=== PATIENT | female | born 1995 | race Caucasian/White ===

== ENCOUNTER 2016-09-20 12:30 | Inpatient (IN) | payer OTHER ==
[2016-09-20] MEDS ORDERED: ELECTROLYTE-148 SOLN 1,000 ML IV SCH (14:15)
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
[2016-09-20 15:01] LABS: BASOPHIL 0.4 % (0-2.0); EOSINOPHIL 0.8 % (0-4.5); MCH 28.8 pg (25.7-33.7); MEAN CELL VOLUME 87.3 fl (80-96); MEAN PLT VOLUME 8.5 fl (7.5-11.1); NEUTROPHILS 74.6 % (42.8-82.8); PLATELET COUNT 229 K/MM3 (134-434); RDW 14.4 % (11.6-15.6); WHITE BLOOD COUNT 9.5 K/mm3 (4.0-10.0)
[2016-09-20] MEDS ORDERED: DINOPROSTONE 10 MG VAGINAL SUPPOSITORY VG ONE (15:15)
[2016-09-20] MEDS ORDERED: SODIUM PHOSPHATE/NA BIPHOS 133 ML ENEMA PR ONE (15:15)
[2016-09-20 15:17] LABS: INR 1.05 (0.82-1.09); PROTHROMBIN TIME (PATIENT) 11.6 SEC (9.98-11.88)
[2016-09-20 15:20] LABS: ACTIVATED PTT 30.2 SECONDS (26.9-34.4)
[2016-09-20 15:45] LABS: ALBUMIN 2.4 g/dl (3.4-5.0); ALK PHOS 171 U/L (45-117); ANION GAP 10 (8-16); BILIRUBIN,TOTAL 0.2 mg/dL (0.2-1.0); CO2 23 mmol/L (21-32); CREATININE 0.6 mg/dL (0.55-1.02); GLUCOSE,RANDOM 87 mg/dL (74-106); SGOT/AST 10 U/L (15-37); SGPT/ALT 17 U/L (12-78); TOT PROT 6.3 g/dl (6.4-8.2)
[2016-09-20 16:13] VITALS: BMI 39.6
[2016-09-20 17:31] LABS: URINE APPEARANCE SLCLOUDY; URINE BILIRUBIN NEGATIVE (NEGATIVE); URINE BLOOD NEGATIVE (NEGATIVE); URINE COLOR DKYELLOW; URINE GLUCOSE (UA) NEGATIVE (NEGATIVE); URINE KETONE NEGATIVE (NEGATIVE); URINE NITRITE NEGATIVE (NEGATIVE); URINE UROBILINOGEN 2.0 E.U/dl E.U./dl (0.2-1.0)
[2016-09-20 17:33] LABS: URINE PROTEIN 1+ (NEGATIVE)
[2016-09-20 17:34] LABS: URINE LEUK ESTERASE TRACE (NEGATIVE)
[2016-09-20 17:35] LABS: URINE BACTERIA MANY /hpf (NONE SEEN); URINE HYALINE CAST 7 /lpf; URINE MUCUS RARE; URINE RBC 2 /hpf (0-3); URINE WBC 23 /hpf (3-5)
[2016-09-21] MEDS ORDERED: OXYTOCIN 15 UNITS/ LR 250 ML 250 ML IVPB SCH (04:30)
[2016-09-21] MEDS: DEXTROSE 5%-LACTATED RINGERS 1,000 ML IV SCH ×2 (04:30→10:26)
--- NOTE | 2016-09-21 07:06 | PN ---
Ante-Partal Exam - Subjective Subjective: on pitocin since 4am , not perceiving ctx, admits to movements Vital Signs: Vital Signs Temperature 97.9 F 09/21/16 06:00 Pulse Rate 72 09/21/16 06:00 Respiratory Rate 20 09/21/16 06:00 Blood Pressure 127/67 09/21/16 06:00 O2 Sat by Pulse Oximetry (%) Bleeding: No Headache: No Visual changes: No Right upper quadrant pain: No Pain (scale 1-10): 2 - Contractions Contractions: Yes Regularity: Irregular Intensity: Unaware Monitor Mode: External - Exam during Labor Heart Rate: 150 Variability: Moderate Heart Rate Location: Midline Category: I Monitor Accelerations: Present Monitor Decelerations: Variable Exam: Vaginal Dilatation (cm): 1 Effacement (%): 50 Amniotic Membrane Status: Intact Station: -3 - Assessment/Plan Assessment/Plan: will continue pitocin watch fht pain meds prn
--- NOTE | 2016-09-21 07:43 | PN ---
Progress Note (short form) - Note Progress Note: attempted arom, some clear fluid ? arom still unchanged
--- NOTE | 2016-09-21 10:19 | PN ---
Progress Note (short form) - Note Progress Note: 10.00 am 41.2 weeks today, s/p cervidil induction for 12 hrs Presently Pitocin induction . . Pitocin was started at 4.30 am & discontinued in between & again restarted . presently 7miu, uc are still irregular , 3-5-6 min. FHR 140-150 cat-1 pelvic exam 1cm/mid pose/50 % /vx-3 Selected Entries 09/21/16 09/21/16 06:00 07:00 Temperature 97.9 F Pulse Rate 72 78 Blood Pressure 127/67 129/71 Imp Latent phase . Plan , continue Pitocin induction Problem List - Problems (1) Post term at 41 weeks gestation Code(s): O48.0 - POST-TERM Z3A.41 - 41 WEEKS GESTATION OF (2) Obesity affecting Code(s): O99.210 - OBESITY COMPLICATING , UNSPECIFIED TRIMESTER (3) Elective induction of labor planned Code(s): HCY3232 -
[2016-09-21] MEDS ORDERED: BUTORPHANOL TARTRATE 1 MG/ML VIAL IVPUSH ONE (11:16)
[2016-09-21] MEDS ORDERED: PROMETHAZINE HCL 25 MG/1 ML VIAL IVPUSH ONE (11:16)
--- NOTE | 2016-09-21 11:16 | PN ---
Progress Note, Labor Vaginal Exam #1 Labor Exam Date: 09/21/16 Labor Exam Time: 11:10 Heart Rate (range): 140-150 Dilatation: 1-2 Effacement (%): 60 Amniotic Membrane Status: Ruptured Presentation: Vertex/Position Station: -3 (-3/-2) Remarks: uc q3 min FHR cat-1 pitocin 11 ml/hr . pt requests for pain meds 11.35 am stadol 2 mg iv stat was given Selected Entries 09/21/16 10:00 Temperature 98.0 F Pulse Rate 86 Blood Pressure 139/79 Vaginal Exam #2 Labor Exam Date: 09/21/16 Labor Exam Time: 14:10 Heart Rate (range): 140-150 Dilatation: 1-2 Effacement (%): 60 Amniotic Membrane Status: Ruptured Presentation: Vertex/Position Station: -3 Remarks: fhr cat-1 uc2-4 min pit 17ml/hr Selected Entries 09/21/16 14:00 Temperature 98.0 F Pulse Rate 74 Blood Pressure 132/66 14.35 hr pt refuses to continue induction, requests for c/section Imp failed induction , 41.2 weeks gestation . Plan : delivery by Primary c/section possible Right Ovarian cystectomy for dermoid cyst
[2016-09-21] MEDS ORDERED: CITRIC ACID/SODIUM CITRATE 30 ML UNIT-DOSE CUP PO ONE (14:45)
[2016-09-21] MEDS ORDERED: LACTATED RINGERS SOLUTION 1,000 ML IV SCH (15:00)
[2016-09-21] MEDS: ACETAMINOPHEN 1000 MG/100 ML VIAL (NON FORMULARY) IVPB PRN ×2 (17:30→22:40)
[2016-09-21] MEDS ORDERED: METHYLERGONOVINE MALEATE 0.2 MG/1 ML AMP IM PRN (18:01)
--- NOTE | 2016-09-21 18:15 | PN ---
Delivery - Delivery Section: Primary, Low Flap Transverse (41.2 weeks, Failed induction of labor, Morbid obesity) Type of Anesthesia: Spinal Episiotomy/Laceration: None EBL (cc): 700 (hdz out put 300 ml, marta color ) Delivery, Single - Stages of Labor Date 1st Stage Initiatied: 09/21/16 Time 1st Stage Initiated: 09:00 Date of Delivery: 09/21/16 Time of Delivery: 17:25 Time Placenta Delivered: :26 Placenta: Yes: Expressed, Uterine Exploration - Condition of Infant Panel Fitter/Newsroom Intern Present: Yes Name: Jean Canales Infant Gender: Male Weight: 7 lb 8 oz Position: Right, OP Total Hours ROM (Hrs/Mins): 04/03 - 1 Minute Total Score: 9 5 Minutes Total Score: 9 - [place] Feeding Plan Initial Plan: Elected not to breastfeed exclusively throughout hospitalization Remarks - Remarks Remarks: 21 yrs 41.2 weeks, admitted for induction of labor pnc at [address] [place] [address] GBS neg. Cervidil insertion on 09/20/16 Pitocin Induction on 09/21/16 iv stadol for labor analgesia was used. Intraop right side paratubal simple cyst 3cm in lateral portion of the tube was seen , very vascular, hence it was not removed Both Ovaries were normal No Dermoid cyst was noted . Intraop course was uneventful
--- NOTE | 2016-09-21 18:21 | OP ---
Operative Note - Note: Operative Date: 09/21/16 Pre-Operative Diagnosis: 41.2 weeks,failed induction of labor, morbid obesity Operation: primary lowflap transverse c/section Findings: 5.25 pm, baby boy, apgar9/9, wt 7'8" , ROP position both ovaries & LTtube normal. Right side paratubal cyst 3cm , very vascular, lateral ampular portion & fimbriae stretched over it , hence not removed Dr Parker Pena, cost recorder was present in the room Post-Operative Diagnosis: Other (Right paratubal cyst) Surgeon: Concetta Rios Test Desk Trouble Locator: Johnnie Pena Anesthesiologist/BOILER OR ENGINE OPERATOR: Antonella Desai Anesthesia: Spinal Specimens Removed: placenta. cord blood Estimated Blood Loss (mls): 700 Drains, Volume Out (mls): 300 (hdz output marta color ) Fluid Volume Replaced (mls): 1,600 (iv Ancef 2 gm ivpb prior to incision)
[2016-09-21] MEDS ORDERED: ONDANSETRON 4 MG/2 ML VIAL IVPB PRN (18:23)
[2016-09-21] MEDS: D5W-LR W/ 20 UNITS OXYTOCIN 1,000 ML IV SCH (18:43)
[2016-09-22] MEDS ORDERED: CEFAZOLIN (PRE-DOCKED) 50 ML IVPB ONE (01:29)
[2016-09-22] MEDS: D5W-LR W/ 20 UNITS OXYTOCIN 1,000 ML IV SCH ×3 (01:31→20:00)
[2016-09-22] MEDS ORDERED: CEFAZOLIN 1 GM/D5W 50 ML IVPB SCH (02:00)
[2016-09-22] MEDS: ACETAMINOPHEN 1000 MG/100 ML VIAL (NON FORMULARY) IVPB PRN ×2 (05:39→12:10)
[2016-09-22 07:13] LABS: BASOPHIL 0.3 % (0-2.0); EOSINOPHIL 0.3 % (0-4.5); MCH 29.5 pg (25.7-33.7); MCHC 33.5 g/dl (32.0-36.0); MEAN CELL VOLUME 87.8 fl (80-96); MEAN PLT VOLUME 8.2 fl (7.5-11.1); NEUTROPHILS 74.1 % (42.8-82.8); PLATELET COUNT 193 K/MM3 (134-434); RDW 14.4 % (11.6-15.6); WHITE BLOOD COUNT 10.3 K/mm3 (4.0-10.0)
[2016-09-22] MEDS: CEFAZOLIN (PRE-DOCKED) 50 ML IVPB SCH ×2 (10:00→17:38)
--- NOTE | 2016-09-22 11:07 | PN ---
Progress Note (short form) - Note Progress Note: POD #1 - s/p under spinal anesthesia with duramorph. Pt. doing well, sitting up comfortably in chair with baby. No complaints. Good pain control. No apparent anesthetic complications noted. Continue current care.
--- NOTE | 2016-09-22 11:52 | PN ---
Post Progress Note - Subjective Subjective: c/o pain scale 5-10 not voiided yet Post Day: 1 Type of Delivery: Primary C/S Vital Signs: Vital Signs Temperature 99.8 F H 09/22/16 06:00 Pulse Rate 95 H 09/22/16 06:00 Respiratory Rate 18 09/22/16 09:00 Blood Pressure 121/65 09/22/16 06:00 O2 Sat by Pulse Oximetry (%) 98 09/21/16 21:00 Breast Exam: Yes: Soft, Other (BF ). No: Engorged Uterus: Yes: Fundus Firm, Fundus below umbilicus, Non-tender Incision: Yes: Dressing dry and intact. No: Redness, Oozing Abdomen/GI: Yes: Abdomen soft (bs active ), Tender, Tolerating PO (clear liquids ). No: Abdominal Distention (obese abdomen ), Passing flatus Lochia: Yes: Rubra Lochia, amount: Moderate Extremities: Yes: Calves non-tender Perineum: Yes: Intact Activity: Other (oob in chair ) - Labs Labs: CBC WBC 10.3 K/mm3 (4.0-10.0) H 09/22/16 05:35 RBC 3.83 M/mm3 (3.60-5.2) 09/22/16 05:35 Hgb 11.3 GM/dL (10.7-15.3) D 09/22/16 05:35 Hct 33.6 % (32.4-45.2) 09/22/16 05:35 MCV 87.8 fl (80-96) 09/22/16 05:35 MCHC 33.5 g/dl (32.0-36.0) 09/22/16 05:35 RDW 14.4 % (11.6-15.6) 09/22/16 05:35 Plt Count 193 K/MM3 (134-434) 09/22/16 05:35 MPV 8.2 fl (7.5-11.1) 09/22/16 05:35 Neutrophils % 74.1 % (42.8-82.8) 09/22/16 05:35 Lymphocytes % 15.8 % (8-40) 09/22/16 05:35 Monocytes % 9.5 % (3.8-10.2) 09/22/16 05:35 Eosinophils % 0.3 % (0-4.5) 09/22/16 05:35 Basophils % 0.3 % (0-2.0) 09/22/16 05:35 Other Findings, Remarks: RS cta, using incentive spirometer . i/o normal Problem List - Problems (1) Post term at 41 weeks gestation Code(s): O48.0 - POST-TERM Z3A.41 - 41 WEEKS GESTATION OF (2) Obesity affecting Code(s): O99.210 - OBESITY COMPLICATING , UNSPECIFIED TRIMESTER (3) Elective induction of labor planned Code(s): [id number] - (4) Complex cyst of right ovary Code(s): N83.291 - OTHER OVARIAN CYST, RIGHT SIDE Assessment/Plan stable. plan encourage ambulation, deep breathing, po fluids ct po care
[2016-09-22] MEDS: PRENATAL VITAMINS W/ FOLIC ACID TABLET (FP) PO SCH (12:09)
--- NOTE | 2016-09-22 13:17 | OP ---
DATE OF OPERATION: 09/21/2016 PREOPERATIVE DIAGNOSIS: 41.2 weeks, failed induction of labor and morbid obesity. OPERATION: Primary low flap transverse section. POSTOPERATIVE DIAGNOSIS: 41.2 weeks, failed induction of labor and morbid obesity, right paratubal cyst. SURGEON: Concetta Rios MD EARTHMOVING LABOURER SURGEON: Johnnie Pena MD ANETHESIOLOGIST: Cecelia Desai ANESTHESIA: Spinal. FINDINGS: This is a 21-year-old, 1, para 0 who was 41.1 weeks on September 20 and was admitted for induction of labor. Cervidil induction followed by Pitocin induction was done. She dilated to only 1-2 cm. The patient refused to continue labor induction and she requested for section. The patient is obese. Her weight is 253 pounds. PROCEDURE: The patient's abdomen was shaved, prepped, and Ramos catheter was placed. She was taken to the operating room table and spinal anesthesia was given. She was placed in the supine position. Abdomen was painted and draped in the usual manner. The Pfannenstiel incision was made. The skin and subcutaneous tissues with the anterior rectus sheath were incised transversely. Bleeding points were clamped and cauterized. The rectus muscles were from the rectus sheath. The parietal peritoneum was opened vertically. The lower part of the bladder flap was incised transversely. A lower uterine segment was isolated. It was incised transversely and amniotic fluid was clear. The baby was delivered at 5:25 p.m. from an ROP position. was 9 and 9. Cord was clamped and cut. Cord blood was collected. Dr. Jean Canales, the charging car operator was present in the room. Baby's weight was 7 pounds 8 ounces. Cord blood was collected and sent to the lab. Placenta was removed completely with the membranes and it was sent for pathology examination. Uterus was brought out of the incision and then the uterine cavity was cleaned. Uterine incision was closed with Biosyn 0 suture, continuous locking suture. A second layer was taken with Biosyn 0 imbricating the first layer by taking vertical mattress sutures. Hemostasis was checked and the bladder peritoneum was also closed with Biosyn 0 suture. Both ovaries were normal. There were no cysts seen in the ovary as was described in the 8 week sonogram. The left tube was normal. Right tube paratubal simple cyst was seen. Fimbria and lateral ampullary portion of the tube was stretched over the cyst and it very vascular, so it was decided not to touch the cyst. It measured 3 cm in size. Irrigation was done. Uterus was placed back into the peritoneal cavity. Suction irrigation was done. The sponge, instrument, and needle counts were correct. The closure of the abdomen was done. The parietal peritoneum was closed with 0 Vicryl suture. Muscles were approximated with 0 Vicryl suture, interrupted sutures were taken. After hemostasis was verified, and then the anterior rectus sheath was closed with 0 Vicryl suture. Continuous sutures were taken. Subcutaneous tissues had hemostasis checked. The subcutaneous tissues were approximated with Biosyn 0 continuous suture. The skin was approximated with virgilio. Patient tolerated the procedure well and pressure dressing was given. Blood clots were removed from the vagina. She received 2 g of IV Ancef prior to the incision. Estimated blood loss was 700 mL. Intraoperative urine output was 300 mL. It was marta colored. Dany [id number] MTDD
--- NOTE | 2016-09-22 14:53 | CON.PSY ---
Psychiatry Consult Chief Complaint: Patient seen along with her significant other. history of substance abuse and Bipolat disorder. - Previous Psychiatric Treatment Outpatient: More than 6 mos ago Inpatient: None - Previous Substance Abuse Treatment Outpatient: Less than 6 mos ago - Reason for Previous Treatment Reason for Previous Treatment: Biploar Illness, Drug Abuse - Family History Family History: Unremarkable - Current Medications Current Medications: Active Medications Acetaminophen (Tylenol -) 650 mg PO Q4H PRN PRN Reason: FEVER OR PAIN Bisacodyl (Dulcolax Suppository -) 10 mg RC PRN PRN PRN Reason: CONSTIPATION Ferrous Sulfate (Feosol -) 325 mg PO BID [facility] Dextrose/Lactated Ringer's (Pitocin 20 Units In D5-Lr -) 1,000 mls @ 125 mls/ hr IV ASDIR [facility] Last Admin: 09/22/16 10:30 Dose: 125 mls/hr Cefazolin Sodium (Ancef 1gm Ivpb (Pre-Docked)) 50 mls @ 100 mls/hr IVPB Q8H-IV [facility] Stop: 09/23/16 01:59 Last Admin: 09/22/16 10:00 Dose: 100 mls/hr Methylergonovine Maleate (Methergine Injection -) 0.2 mg IM Q4H PRN PRN Reason: Excessive Bleeding (L&D) Oxycodone HCl (Roxicodone -) 5 mg PO Q4H PRN PRN Reason: PAIN LEVEL 1-5 Oxycodone HCl (Roxicodone -) 10 mg PO Q4H PRN PRN Reason: PAIN LEVEL 6-10 Multivit/Folic Acid/Iron ( Vitamins (Sjr) -) 1 tab PO DAILY [facility] Last Admin: 09/22/16 12:09 Dose: Not Given Senna/Docusate Sodium (Pericolace -) 2 tablet PO HS PRN PRN Reason: CONSTIPATION Simethicone (Mylicon -) 80 mg PO Q4H PRN PRN Reason: GAS - Allergies Allergies: Allergies Allergy/AdvReac Type Severity Reaction Status Date / Time diphenhydramine HCl Allergy Severe Swelling Verified 09/21/16 23:05 [From Benadryl] ibuprofen [From Motrin] Allergy Severe Swelling Verified 09/21/16 23:06 - Current Living Status Usual Living Arrangement: With Significant Other - Current Mental Status Evaluation Appearance: Well Groomed Attitude: Cooperative - Affect Affect: Full Range Appropriateness: Appropriate to Content - Mood Mood: Euthymic - Speech/Language Expressive: Coherent - Psychomotor Activity Psychomotor Activity: Normal - Thought Process Thought Process: Intact - Thought Content Hallucinations: Absent Delusions: Absent - Self Perception Self Perception: No Impairment - Cognition Attention: Alert Orientation: Time Memory, Immediate Recall: Intact Memory, Short Term: 3/3 Memory, Remote with Promptin/3 - Concentration Serial Sevens Intact: Yes Simple Calculations Intact: Yes - Abstraction Proverb Interpretation: Intact Judgement: Intact - Insight Insight: Intact - Impulse Control Impulse Control: Good Control - Suicidal Ideation Suicidal Ideation: No - Homicidal Ideation Homicidal Ideation: No Assessment/Plan 1) No psych meds needed at this time. 2) Will follow up with her chief operations officer post dischrge who will copordinate psych follow up serviuces.
[2016-09-22] MEDS: oxyCODONE HCL 5 MG TABLET PO PRN ×2 (16:52→21:17)
[2016-09-22] MEDS: ACETAMINOPHEN 325 MG TABLET (FP) PO PRN ×2 (16:53→21:16)
[2016-09-22] MEDS: SIMETHICONE 80 MG TAB.CHEW (FP) PO PRN ×2 (16:54→21:16)
[2016-09-22] MEDS ORDERED: BISACODYL 10 MG SUPP.RECT RC PRN (18:02)
[2016-09-22] MEDS: FERROUS SO4 325 MG TABLET (FP) PO SCH (21:16)
[2016-09-23] MEDS: oxyCODONE HCL 5 MG TABLET PO PRN ×5 (01:16→20:52)
[2016-09-23] MEDS: SIMETHICONE 80 MG TAB.CHEW (FP) PO PRN ×5 (01:16→20:52)
[2016-09-23] MEDS: ACETAMINOPHEN 325 MG TABLET (FP) PO PRN ×5 (01:16→20:52)
[2016-09-23] MEDS: PRENATAL VITAMINS W/ FOLIC ACID TABLET (FP) PO SCH (09:24)
[2016-09-23] MEDS: FERROUS SO4 325 MG TABLET (FP) PO SCH ×2 (09:24→21:06)
--- NOTE | 2016-09-23 10:12 | PN ---
Post Progress Note - Subjective Subjective: c/o pain scale 5/10 voiding without difficulty Post Day: 2 Type of Delivery: Primary C/S Vital Signs: Vital Signs Temperature 98.2 F 09/23/16 08:34 Pulse Rate 84 09/23/16 08:34 Respiratory Rate 20 09/23/16 08:34 Blood Pressure 114/54 09/23/16 08:34 O2 Sat by Pulse Oximetry (%) 98 09/21/16 21:00 Breast Exam: Yes: Soft, Other (BF ). No: Engorged Uterus: Yes: Fundus Firm, Fundus below umbilicus, Non-tender Incision: Yes: [place] intact. No: Redness, Other Abdomen/GI: Yes: Abdomen soft, Tender, Passing flatus (bm not done yet ), Tolerating PO (diet ). No: Abdominal Distention (obese abdonen ) Lochia: Yes: Rubra Lochia, amount: Moderate Extremities: Yes: Calves non-tender Perineum: Yes: Intact Activity: Ambulating - Labs Labs: CBC WBC 10.3 K/mm3 (4.0-10.0) H 09/22/16 05:35 RBC 3.83 M/mm3 (3.60-5.2) 09/22/16 05:35 Hgb 11.3 GM/dL (10.7-15.3) D 09/22/16 05:35 Hct 33.6 % (32.4-45.2) 09/22/16 05:35 MCV 87.8 fl (80-96) 09/22/16 05:35 MCHC 33.5 g/dl (32.0-36.0) 09/22/16 05:35 RDW 14.4 % (11.6-15.6) 09/22/16 05:35 Plt Count 193 K/MM3 (134-434) 09/22/16 05:35 MPV 8.2 fl (7.5-11.1) 09/22/16 05:35 Neutrophils % 74.1 % (42.8-82.8) 09/22/16 05:35 Lymphocytes % 15.8 % (8-40) 09/22/16 05:35 Monocytes % 9.5 % (3.8-10.2) 09/22/16 05:35 Eosinophils % 0.3 % (0-4.5) 09/22/16 05:35 Basophils % 0.3 % (0-2.0) 09/22/16 05:35 Problem List - Problems (1) Post term at 41 weeks gestation Code(s): O48.0 - POST-TERM Z3A.41 - 41 WEEKS GESTATION OF (2) Obesity affecting Code(s): O99.210 - OBESITY COMPLICATING , UNSPECIFIED TRIMESTER (3) Elective induction of labor planned Code(s): [id number] - (4) Complex cyst of right ovary Code(s): N83.291 - OTHER OVARIAN CYST, RIGHT SIDE Assessment/Plan stable. plan encourage ambulation
[2016-09-23] MEDS: SENNOSIDES/DOCUSATE COMBO (SENNA PLUS) TABLET (UD) PO PRN (20:52)
[2016-09-24] MEDS: SIMETHICONE 80 MG TAB.CHEW (FP) PO PRN ×5 (01:41→20:22)
[2016-09-24] MEDS: oxyCODONE HCL 5 MG TABLET PO PRN ×5 (01:41→20:22)
[2016-09-24] MEDS: ACETAMINOPHEN 325 MG TABLET (FP) PO PRN ×5 (01:43→20:21)
[2016-09-24 08:35] LABS: BASOPHIL 0.4 % (0-2.0); EOSINOPHIL 4.1 % (0-4.5); MCH 29.3 pg (25.7-33.7); MCHC 33.1 g/dl (32.0-36.0); MEAN CELL VOLUME 88.4 fl (80-96); NEUTROPHILS 71.4 % (42.8-82.8); RDW 15.1 % (11.6-15.6); WHITE BLOOD COUNT 8.9 K/mm3 (4.0-10.0)
[2016-09-24] MEDS: FERROUS SO4 325 MG TABLET (FP) PO SCH ×2 (09:21→21:11)
[2016-09-24] MEDS: PRENATAL VITAMINS W/ FOLIC ACID TABLET (FP) PO SCH (09:21)
--- NOTE | 2016-09-24 09:49 | PN ---
Post Progress Note - Subjective Subjective: c/o discomfort at incision site pain scale 5-6/10 Post Day: 3 Type of Delivery: Primary C/S Vital Signs: Vital Signs Temperature 98.3 F 09/23/16 20:14 Pulse Rate 94 H 09/23/16 20:14 Respiratory Rate 20 09/23/16 20:14 Blood Pressure 135/72 09/23/16 20:14 O2 Sat by Pulse Oximetry (%) 98 09/21/16 21:00 Breast Exam: Yes: Soft. No: Engorged Uterus: Yes: Fundus Firm, Fundus below umbilicus Incision: Yes: [place] intact. No: Redness, Oozing Abdomen/GI: Yes: Abdomen soft, Abdominal Distention (obese abdomen . BS active ) , Passing flatus (mb done ), Tolerating PO (diet ). No: Tender Lochia: Yes: Rubra Lochia, amount: Moderate Extremities: Yes: Calves non-tender, Edema Perineum: Yes: Intact Activity: Ambulating - Labs Labs: CBC WBC 8.9 K/mm3 (4.0-10.0) 09/24/16 08:00 RBC 3.61 M/mm3 (3.60-5.2) 09/24/16 08:00 Hgb 10.6 GM/dL (10.7-15.3) L 09/24/16 08:00 Hct 31.9 % (32.4-45.2) L 09/24/16 08:00 MCV 88.4 fl (80-96) 09/24/16 08:00 MCHC 33.1 g/dl (32.0-36.0) 09/24/16 08:00 RDW 15.1 % (11.6-15.6) 09/24/16 08:00 Plt Count 193 K/MM3 (134-434) 09/22/16 05:35 MPV 8.0 fl (7.5-11.1) 09/24/16 08:00 Neutrophils % 71.4 % (42.8-82.8) 09/24/16 08:00 Lymphocytes % 16.6 % (8-40) 09/24/16 08:00 Monocytes % 7.5 % (3.8-10.2) 09/24/16 08:00 Eosinophils % 4.1 % (0-4.5) D 09/24/16 08:00 Basophils % 0.4 % (0-2.0) 09/24/16 08:00 Problem List - Problems (1) Post term at 41 weeks gestation Code(s): O48.0 - POST-TERM Z3A.41 - 41 WEEKS GESTATION OF (2) Obesity affecting Code(s): O99.210 - OBESITY COMPLICATING , UNSPECIFIED TRIMESTER (3) Elective induction of labor planned Code(s): FHB6421 - (4) Complex cyst of right ovary Code(s): N83.291 - OTHER OVARIAN CYST, RIGHT SIDE Assessment/Plan stable discharge tomorrow
[2016-09-24 10:54] LABS: PLATELET COUNT 210 K/MM3 (134-434); PLATELET ESTIMATE ADEQUATE (NORMAL)
[2016-09-24] MEDS: SENNOSIDES/DOCUSATE COMBO (SENNA PLUS) TABLET (UD) PO PRN (20:22)
[2016-09-25] MEDS: oxyCODONE HCL 5 MG TABLET PO PRN (03:46)
[2016-09-25] MEDS: SIMETHICONE 80 MG TAB.CHEW (FP) PO PRN (03:46)
[2016-09-25] MEDS: ACETAMINOPHEN 325 MG TABLET (FP) PO PRN (03:49)
[2016-09-25 08:42] VITALS: BP 100/54; PULSE 80; TEMP 98.8
[2016-09-25] MEDS: FERROUS SO4 325 MG TABLET (FP) PO SCH (09:12)
[2016-09-25] MEDS: PRENATAL VITAMINS W/ FOLIC ACID TABLET (FP) PO SCH (09:12)
--- NOTE | 2016-09-25 10:52 | DS ---
Physical Exam-HEALTHCARE RISK CONTROL CONSULTANT Vital Signs: Vital Signs Temperature 98.8 F 09/25/16 08:41 Pulse Rate 80 09/25/16 08:41 Respiratory Rate 20 09/25/16 08:41 Blood Pressure 100/54 09/25/16 08:41 O2 Sat by Pulse Oximetry (%) 98 09/21/16 21:00 Constitutional: Yes: Well Nourished, Obese, Other (pain scale 5/10) Eyes: Yes: WNL HENT: Yes: WNL Neck: Yes: WNL Cardiovascular: Yes: WNL Respiratory: Yes: WNL Gastrointestinal: Yes: WNL, Normal Bowel Sounds, Soft, Abdomen, Obese, Other ( bm done). No: Distention Renal/: Yes: Other (voiding without difficulty) Pelvis: Yes: WNL External Genitalia: Yes: Normal ....Post : Yes: Uterus firm (below umblicus), Uterus non-tender, Moderate lochia rubra Breast(s): Yes: WNL (BF, breast not engorged) Musculoskeletal: Yes: WNL Extremities: Yes: WNL. No: Calf Tenderness Edema: Yes Edema: LLE: 1+, RLE: 1+ Integumentary: Yes: Tattoos Wound/Incision: Yes: Clean/Dry, Well Approximated, Steri Strips, Open to air, [place] Removed. No: Reddened, Bleeding Neurological: Yes: WNL ...Motor Strength: WNL Psychiatric: Yes: WNL, Alert, Other (psyche consult obtained due to h/o bipolar disorder, prior to pregn on meds ..no need of meds as per consult. pt is instructed to follow with her psychiatrist) Labs: CBC, BMP 09/24/16 08:00 09/20/16 14:35 Delivery - Delivery Section: Primary, Low Flap Transverse (41.2 weeks, Failed induction of labor, Morbid obesity) Type of Anesthesia: Spinal Episiotomy/Laceration: None EBL (cc): 700 (hdz out put 300 ml, marta color ) Delivery, Single - Stages of Labor Date 1st Stage Initiatied: 09/21/16 Time 1st Stage Initiated: 09:00 Date of Delivery: 09/21/16 Time of Delivery: 17:25 Time Placenta Delivered: 17:26 Placenta: Yes: Expressed, Uterine Exploration - Condition of Infant Critical Care Rn/Electronic Device Repairer Present: Yes Name: Jean Canales Gender: Male Weight: 7 lb 8 oz Position: Right, OP Total Hours ROM (Hrs/Mins): 04/03 - 1 Minute Total Score: 9 5 Minutes Total Score: 9 - Feeding Plan Initial Plan: Elected not to breastfeed exclusively throughout hospitalization Remarks - Remarks Remarks: 21 yrs 41.2 weeks, admitted for induction of labor pnc at [address] [place] [address] GBS neg. Cervidil insertion on 09/20/16 Pitocin Induction on 09/21/16 iv stadol for labor analgesia was used. Intraop right side paratubal simple cyst 3cm in lateral portion of the tube was seen , very vascular, hence it was not removed Both Ovaries were normal No Dermoid cyst was noted . Intraop course was uneventful. post op course was uneventful anemia conselled discharge 09/25/16 Discharge Summary Reason For Visit: CERVICAL INDUCTION OF LABOR Current Active Problems Complex cyst of right ovary (Acute) Delivery by emergency section (Acute) Elective induction of labor planned (Acute) Failed induction of labor (Acute) Obesity affecting (Acute) Paratubal cyst (Acute) Post term at 41 weeks gestation (Acute) Condition: Stable - Instructions Diet, Activity, Other Instructions: Post Instructions DIET: Continue good diet high in protein, calcium, and iron rich foods. Drink at least eight (8) glasses of water daily in addition to other fluids. ct LoCarb/Low Calorie Diet MEDICATIONS: Continue vitamins and iron as previously directed. Motrin and Tylenol may be taken for minor discomfort. ACTIVITY: Mild to moderate exercise may be started in two (2) weeks. Take frequent rest periods. Resume normal activity after six (6) week check up. WOUND CARE OF OPERATIVE SITE: Continue use of perineal bottle until vaginal discharge stops. Keep area clean. Shower daily. Keep abdominal wound dry. Report any drainage or redness to physician. Tub baths, tampons and douches are not permitted for [address] Breast feeding & or Bottle feeding BREAST CARE: (For those that are not breast feeding): If engorgement occurs: Wear tight fitting bra. Take Tylenol or Motrin for pain. Apply cold packs (ice in bags to each breast ) FAMILY PLANNING: There are many control alternatives to pursue and they should be discussed at your first office visit. You may resume sexual activity after your six (6) week check up. (Remember, breast feeding is not a contraceptive) NEXT PHYSICIAN APPOINTMENT: Be certain to call for a one (1) week appointment, unless otherwise directed. call [address] [place] [address] , [phone] for appt Call Clinic or got to Emergency Dept if you have any of the following: Heavy vaginal bleeding Painful urination Leg pain Unusual odor noted to vaginal bleeding High fever Red streaking noted on breast return to clinic in 1 week for incision check. call [facility] for appointment. [phone] Referrals: [facility] [Provider Group] Concetta Rios MD [Staff Physician] - Disposition: HOME - Home Medications Comprehensive Discharge Medication List: Ambulatory Orders Pnv95/Iron Fum/Folic Acid [ Caplet] 1 each PO DAILY 04/05/16 Acetaminophen [Tylenol .Regular Strength -] 650 mg PO Q4H PRN #0 tablet Ferrous Sulfate [Feosol] 325 mg PO BID 09/24/16 Vitamins (Sjr) - 1 tab PO DAILY tablet 09/24/16 Oxycodone HCl/Acetaminophen [Percocet 5-325 mg Tablet] 1 tab PO Q6H #20 tablet MDD 4 tabs a day 09/25/16
--- NOTE | 2016-09-27 15:12 | PATH ---
Surgical Pathology Report Patient Name: ANNA RUGGIERO Med. Rec. #: [id number] /Age/Gender: 1995 (Age: 21) / F Account: [id number] Location: 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 Specimen(s) Received PLACENTA Clinical History , 41-2/7 IUP, failed induction, obesity C/section Final Diagnosis PLACENTA, DELIVERY: FOCALLY DISRUPTED THIRD TRIMESTER PLACENTA WITH MILD INCREASE IN PREVILLOUS, PERIVILLOUS, AND PRECHORIONIC FIBRIN DEPOSITION, THREE VESSEL UMBILICAL CORD, AND PLACENTAL MEMBRANES WITH ACUTE CHORIOAMNIONITIS AND FOCAL ACUTE INFLAMMATION OF CHORIONIC PLATE. Electronically Signed Justin Mercedes M.D. Gross Description The specimen is received fresh, labeled "placenta" and is a 504 gram, 20.0 x 18.5 x 2.3 cm placenta with attached membranes and umbilical cord. The attached membranes are gomez with focal opacities and insert marginally. The umbilical cord measures 26 cm in length and averages 1 cm in diameter. The cord inserts eccentrically, 6 cm to the nearest margin. No true knots or strictures are identified. Cut surface of the umbilical cord reveals 3 vessels. The surface is stevenson-blue with fibrin deposition and appropriate caliber vessels. The maternal surface is red-brown with focal defects. Sectioning reveals red-brown, spongy parenchyma. No focal lesions are identified. [employer] sections are submitted in three cassettes as follows: 1- membrane rolls and umbilical cord; 2-3- full thickness sections of placenta. 09/26/2016 [facility]09/26/2016
== END 2016-09-25 13:40 | disposition home or self-care (01) | DRG 540 ==
LOC: JDEL 12:30 → JLDR 13:05 → J3W 09-21 19:30
PROVIDERS: ADMIT Obstetrics & Gynecology; ATTEND Obstetrics & Gynecology
PROC: 3E033VJ Introduction of Other Hormone into Peripheral Vein, Percutaneous Approach (ICD-10-PCS; 2016-09-20)
PROC: 10D00Z1 Extraction of Products of Conception, Low, Open Approach (ICD-10-PCS; principal; 2016-09-21)
DX: O48.0 Post-term pregnancy (principal); O61.0 Failed medical induction of labor; O99.214 Obesity complicating childbirth; E66.01 Morbid (severe) obesity due to excess calories; Z68.39 Body mass index [BMI] 39.0-39.9, adult; O34.83 Maternal care for other abnormalities of pelvic organs, third trimester; O75.89 Other specified complications of labor and delivery; J45.909 Unspecified asthma, uncomplicated; O99.02 Anemia complicating childbirth; D64.9 Anemia, unspecified; F43.10 Post-traumatic stress disorder, unspecified; X58.XXXA Exposure to other specified factors, initial encounter; Z3A.41 41 weeks gestation of pregnancy; Z37.0 Single live birth
CPT/HCPCS: 36415; 80053; 81003; 81015; 85025; 85610; 85730; 86593; 86850; 86900; 86901; 88307-TC